=== PATIENT | female | born 2000 | race Caucasian/White ===

== ENCOUNTER 2020-03-19 17:06 | Emergency (ER) | payer OTHER ==
[~2020-03-19] VITALS: Ht 160 cm; Wt 77.3 kg
[~2020-03-19 17:06] MED LIST: AMOXICILLIN 8751 TAB PO; CRUTCHES MC; NORCO 325 MG-51 TAB PO
[2020-03-19 17:12] VITALS: BP 118/76; TEMP 99
[2020-03-19 18:05] VITALS: PULSE 80
== END 2020-03-19 18:05 | disposition home or self-care (01) ==
LOC: COL.ER 17:06
DX: S71.152A Open bite, left thigh, initial encounter (principal); W54.0XXA Bitten by dog, initial encounter; Z86.718 Personal history of other venous thrombosis and embolism; Z79.82 Long term (current) use of aspirin

== ENCOUNTER → 2020-03-20 | Outpatient (CLI) | payer OTHER | LOC: COL.RAD 09:05 | DX: M79.662 Pain in left lower leg (principal) ==